=== PATIENT | male | born 1940 | race Caucasian/White ===

== ENCOUNTER 2019-07-12 15:01 | Outpatient (CLI) | payer MEDICARE, MEDICAID | END 2019-07-12 23:59 | disposition home or self-care (01) | LOC: RAD 15:01 | PROVIDERS: ATTEND Internal Medicine | DX: R13.12 Dysphagia, oropharyngeal phase (principal); Z87.891 Personal history of nicotine dependence | CPT/HCPCS: 74230 ==

== ENCOUNTER 2020-08-28 13:20 | Outpatient (CLI) | payer MEDICARE, MEDICAID | END 2020-08-28 23:59 | disposition home or self-care (01) | LOC: RAD 13:20 | PROVIDERS: ATTEND Internal Medicine | DX: R13.12 Dysphagia, oropharyngeal phase (principal) | CPT/HCPCS: 74230 ==

== ENCOUNTER 2021-09-03 12:52 | Outpatient (CLI) | payer MEDICARE, MEDICAID | END 2021-09-03 23:59 | disposition home or self-care (01) | LOC: RAD 12:52 | PROVIDERS: ATTEND Internal Medicine | DX: R13.12 Dysphagia, oropharyngeal phase (principal); R47.1 Dysarthria and anarthria | CPT/HCPCS: 74230 ==

== ENCOUNTER 2023-05-05 13:43 | Outpatient (CLI) | payer OTHER | END 2023-05-05 23:59 | disposition home or self-care (01) | LOC: RAD 13:43 | PROVIDERS: ATTEND Internal Medicine | DX: R13.12 Dysphagia, oropharyngeal phase (principal); R47.1 Dysarthria and anarthria | CPT/HCPCS: 74230 ==